=== PATIENT | female | born 1930 | race Caucasian/White ===

== ENCOUNTER 2016-09-13 23:40 | Emergency (ER) | payer BC ==
[~2016-09-13 23:40] MED LIST: AMARYL2 PO; APRES10B PO; AVAPRO300 MG PO; BYSTOLIC10 MG PO; BYSTOLIC20 MG PO; CAT2 PO; FLONASE NAS; KDUR10 PO; L40 PO; NORV5 PO; OCEAN NAS; XYZAL5 MG PO; ZOCOR20 PO
== END 2016-09-14 00:48 | disposition home or self-care (01) ==
LOC: ER 23:40
DX: M25.532 Pain in left wrist (principal); M79.89 Other specified soft tissue disorders; I10 Essential (primary) hypertension; E11.9 Type 2 diabetes mellitus without complications; Z79.899 Other long term (current) drug therapy
CPT/HCPCS: 73110-LT; 99283; A9270-GY